=== PATIENT | male | born 1965 ===

== ENCOUNTER 2018-07-19 15:43 | Emergency (ER) | payer BC ==
--- NOTE | 2018-07-19 17:28 | C.PDOC ---
History Of Present Illness The patient is a 53-year-old male who underwent plastic surgery to his nose and eyelids yesterday at [facility] [place]. Patient reports to the ED for evaluation of right arm swelling noted today. Patient states an IV was placed in his left forearm and the blood pressure cuff was on his right arm during the surgery. He denies chest pain, shortness of breath, fever, chillness, or redness to the area. Time Seen by Provider: 07/19/18 17:04 Chief Complaint (Nursing): Upper Extremity Problem/Injury History Per: Patient History/Exam Limitations: no limitations Onset/Duration Of Symptoms: Hrs Current Symptoms Are (Timing): Still Present Additional History Per: Patient Past Medical History Reviewed: Historical Data, Nursing Documentation, Vital Signs Vital Signs: Last Vital Signs Temp 98.3 F 07/19/18 15:48 Pulse 83 07/19/18 15:48 Resp 18 07/19/18 15:48 BP 164/94 H 07/19/18 15:48 Pulse Ox 97 07/19/18 15:48 - Medical History PMH: Hypothyroidism Surgical History: No Surg Hx Family History: States: Unknown Family Hx - Social History Hx Alcohol Use: No Hx Substance Use: No - Immunization History Hx Tetanus Toxoid Vaccination: No Hx Influenza Vaccination: No Hx Pneumococcal Vaccination: No Review Of Systems Constitutional: Negative for: Fever, Chills Skin: Positive for: Other (right arm swelling, no redness) Physical Exam - Physical Exam Appears: Non-toxic, No Acute Distress Skin: Warm, Dry Head: Atraumatic, Other (periorbital ecchymosis with eyelid dressing, nasal ecchymosis with packing and dressing ) Eye(s): bilateral: Normal Inspection Oral Mucosa: Moist Neck: Supple Chest: Symmetrical, No Deformity, No Tenderness Cardiovascular: Rhythm Regular, No Murmur Respiratory: Normal Breath Sounds, No Rales, No Rhonchi, No Wheezing Extremity: Normal ROM, No Tenderness (right arm ), Capillary Refill (less than 2 seconds ), Swelling (very mild, to right tricep region ), No Other (erythema to right arm ) Pulses: Left Brachial: Normal, Right Brachial: Normal, Left Radial: Normal, Right Radial: Normal Neurological/Psych: Oriented x3, Normal Speech, Normal Cognition ED Course And Treatment O2 Sat by Pulse Oximetry: 97 Progress Note: Arm sling was applied by RN and checked by me. There is no doppler study available at this time. Will not given patient Heparin since he is post-op. On reassessment, patient is resting comfortably, showing no signs of distress, and is stable for discharge. Patient given return instructions for a Doppler study. Patient is advised to follow up with his PMD within 1 to 2 days for further evaluation. Advised to return to the ED immediately if symptoms persist or worsen. Disposition Counseled Patient/Family Regarding: Diagnosis, Need For Followup - Disposition Referrals: Endy Mckenna MD [Staff Provider] - Disposition: HOME/ ROUTINE Disposition Time: 17:30 Condition: STABLE Additional Instructions: RETURN TO EMERGENCY ROOM AFTER 9AM, BEFORE 3PM FOR VENOUS DOPPLER OF RIGHT ARM RETURN SOONER IF YOU HAVE ANY CONCERNING SYMPTOMS Forms: [facility] (Citizen Of [place]), General Discharge Instructions Print Language: MONEGASQUE - Clinical Impression Clinical Impression: Swelling of right upper extremity - Scribe Statement The provider has reviewed the documentation as recorded by the Scribe (Katty Byrd) Provider Attestation: All medical record entries made by the Scribe were at my direction and personally dictated by me. I have reviewed the chart and agree that the record accurately reflects my personal performance of the history, physical exam, medical decision making, and the department course for this patient. I have also personally directed, reviewed, and agree with the discharge instructions and disposition.
[2018-07-19 17:59] VITALS: BP 155/98; PULSE 84; RESP 20; TEMP 98.4
[2018-07-19 23:28] VITALS: O2SAT 97
== END 2018-07-19 17:59 | disposition home or self-care (01) ==
LOC: C.ER 15:43
DX: M79.89 Other specified soft tissue disorders (principal)